=== PATIENT | female | born 1960 | race Caucasian/White ===

== ENCOUNTER → 2023-02-28 17:07 | Outpatient (BNVA) | payer OTHER, SELFPAY | PROVIDERS: Family Provider Family Medicine; PCP Family Medicine; Visit Provider Emergency Medicine | DX: S92.512A Displaced fracture of proximal phalanx of left lesser toe(s), initial encounter for closed fracture; X58.XXXA Exposure to other specified factors, initial encounter; S90.31XA Contusion of right foot, initial encounter; S90.32XA Contusion of left foot, initial encounter | CPT/HCPCS: 73630 ==

== ENCOUNTER → 2023-07-01 14:16 | Outpatient (BNVA) | payer OTHER, SELFPAY | PROVIDERS: Family Provider Family Medicine; PCP Family Medicine; Visit Provider Emergency Medicine | DX: R39.9 Unspecified symptoms and signs involving the genitourinary system (principal); H69.92 Unspecified Eustachian tube disorder, left ear | CPT/HCPCS: 87400 ==

== ENCOUNTER → 2025-03-20 14:52 | Outpatient (BNVA) | payer OTHER, SELFPAY | PROVIDERS: Family Provider Family Medicine; PCP Family Medicine; Visit Provider Orthopaedic Surgery | DX: M48.061 Spinal stenosis, lumbar region without neurogenic claudication (principal) | CPT/HCPCS: 72110; 99203 ==

== ENCOUNTER 2025-04-07 09:42 | Outpatient (CLI) | payer OTHER, MEDICARE, SELFPAY ==
--- NOTE | 2025-04-07 10:15 | MR_ITS ---
WS: [id number] MRI LUMBAR SPINE NONCONTRAST HISTORY: Back pain, RIGHT hip pain for 2 months. COMPARISON: Radiograph 03/20/2025 TECHNIQUE: Sagittal and axial multisequence imaging is submitted. Small disc protrusions at C4-5, C5-6 and C6-7. There are 5 nonrib-bearing vertebral bodies with the S1 vertebral body being partially lumbarized. This numbering pattern is correlated with the radiographs from 03/20/2025. There may only be 11 thoracic vertebral bodies. Disc spaces and vertebral body heights are well-preserved. Conus terminates normally at L1-2 disc level. L1-L2: No stenosis. Mild facet arthritis. L2-L3: Mild disc bulging. Mild ligamentum flavum and facet arthritis. Mild RIGHT foraminal stenosis. L3-L4: Mild disc bulging with a shallow RIGHT subarticular recess and foraminal disc protrusion. Disc protrusion with mild contact on the traversing L4 nerve root. Mild RIGHT foraminal stenosis. L4-L5: Mild disc bulging with ligamentum flavum and facet arthritis. Very mild narrowing of the subarticular recesses. L5-S1: Central disc protrusion with mild facet arthritis. There is mild contact on the S1 nerve roots. Rudimentary disc at S1-S2. Multiloculated perineural cysts posterior to S2. Bilateral renal cysts. MR/MR lumbar spine wo con* [id number] IMPRESSION: 1. 5 nonrib-bearing vertebral bodies identified. S1 is partially lumbarized. T his numbering pattern will be important to review if surgery is contemplated in this patient. 2. No high-grade central or foraminal stenosis. 3. Shallow RIGHT subarticular recess and proximal foraminal disc protrusion at L3-4. There is mild contact on the traversing RIGHT L4 nerve root. Mild RIGHT foraminal stenosis. 4. Mild subarticular recess narrowing at L4-5. 5. Tiny central disc protrusion at L5-S1 with minimal contact on the S1 nerve roots.
== END 2025-04-07 09:43 | disposition home or self-care (01) ==
PROVIDERS: Family Provider Family Medicine; PCP Family Medicine; Visit Provider Orthopaedic Surgery
DX: M48.061 Spinal stenosis, lumbar region without neurogenic claudication (principal); M47.896 Other spondylosis, lumbar region; M51.16 Intervertebral disc disorders with radiculopathy, lumbar region; M24.28 Disorder of ligament, vertebrae; M51.17 Intervertebral disc disorders with radiculopathy, lumbosacral region; M47.817 Spondylosis without myelopathy or radiculopathy, lumbosacral region; G96.191 Perineural cyst; M51.87 Other intervertebral disc disorders, lumbosacral region; Q76.49 Other congenital malformations of spine, not associated with scoliosis
CPT/HCPCS: 72148

== ENCOUNTER → 2025-04-17 13:27 | Outpatient (BNVA) | payer OTHER, SELFPAY | PROVIDERS: Family Provider Family Medicine; PCP Family Medicine; Visit Provider Orthopaedic Surgery | DX: M54.9 Dorsalgia, unspecified (principal) | CPT/HCPCS: 99214 ==

== ENCOUNTER 2025-04-28 11:01 | Outpatient (CLI) | payer MEDICARE, OTHER, SELFPAY ==
--- NOTE | 2025-04-28 11:08 | XR_ITS ---
WS: [id number] Exam: XR hip BI 2V wo/w pel [id number] Date/Time of Exam: 04/28/2025 11:10 AM Reason For Exam: M16.9 - Osteoarthritis of hip, unspecified Mild to moderate degenerative change of both hips. The pattern is bilaterally symmetrical. No fracture. The pelvis is unremarkable. Normal bilateral soft tissues. XR/XR hip BI 2V wo/w pel [id number] IMPRESSION: 1. 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
== END 2025-04-28 11:02 | disposition home or self-care (01) ==
LOC: RAD 11:04
PROVIDERS: Family Provider Family Medicine; PCP Family Medicine; Visit Provider Anesthesiology Pain Medicine
DX: M16.0 Bilateral primary osteoarthritis of hip (principal)
CPT/HCPCS: 73521

== ENCOUNTER → 2025-05-06 13:41 | Outpatient (BNVA) | payer MEDICARE, OTHER, SELFPAY | PROVIDERS: Family Provider Family Medicine; PCP Family Medicine; Visit Provider Anesthesiology Pain Medicine | DX: M16.11 Unilateral primary osteoarthritis, right hip (principal) | CPT/HCPCS: 20610; 77002; J1010; J3490; J9999 ==

== ENCOUNTER → 2025-05-20 07:55 | Outpatient (BNVA) | payer MEDICARE, SELFPAY | PROVIDERS: Family Provider Family Medicine; PCP Family Medicine; Visit Provider Anesthesiology Pain Medicine | DX: M54.9 Dorsalgia, unspecified (principal); M25.559 Pain in unspecified hip | CPT/HCPCS: 99214 ==